=== PATIENT | female | born 1955 | race Hispanic/Latino ===

== ENCOUNTER 2017-10-20 07:33 | Inpatient (IN) | payer OTHER ==
[~2017-10-20] VITALS: Ht 152.4 cm; Wt 66.5 kg
[2017-10-20] MEDS ORDERED: SODIUM CHLORIDE 0.9% 1000ML 1,000 ML IV ONE ×2 (08:10→08:24)
[2017-10-20] MEDS ORDERED: CEFTRIAXONE SODIUM 1 GM ONE (08:10)
[2017-10-20] MEDS ORDERED: ACETAMINOPHEN EXTRA STRENGTH 500 MG TABLET ONE (08:11)
[2017-10-20] MEDS ORDERED: KETOROLAC TROMETHAMINE 15MG/ML ONE (08:11)
[2017-10-20 08:17] LABS: BASOPHILS % (AUTO) 0.1 % (0.0-5.0); EOSINOPHILS % (AUTO) 0.6 % (0.0-8.0); HEMATOCRIT 39.4 % (36-48); LYMPHOCYTES % (AUTO) 5.6 % (21.0-51.0); MEAN CORPUSCULAR HEMOGLOBIN 31.1 pg (27.0-33.0); MEAN CORPUSCULAR HGB CONC 34.4 g/dL (32.0-36.0); MEAN CORPUSCULAR VOLUME 90.4 fL (79-99); MONOCYTES % (AUTO) 4.6 % (3.0-13.0); NEUTROPHILS % (AUTO) 89.1 % (40.0-77.0); PLATELET COUNT (AUTO) 274 K/uL (130-400); RED BLOOD CELL COUNT(AUTO) 4.35 MIL/uL (4.00-5.50); RED CELL DISTRIBUTION WIDTH 13.2 % (11.0-15.5); WHITE BLOOD COUNT (AUTO) 20.5 K/uL (4.8-10.8)
[2017-10-20 08:25] LABS: CREATININE 0.9 mg/dL (0.5-1.5); POTASSIUM 3.6 mmol/L (3.5-5.1)
[2017-10-20 08:32] LABS: ALBUMIN 4.1 g/dL (3.5-5.0); BILIRUBIN,TOTAL 0.3 mg/dL (0.2-1.0); TOTAL PROTEIN, SERUM 8.6 g/dL (6.0-8.3)
[2017-10-20 09:50] LABS: APPEARANCE,URINE Clear (CLEAR); BILIRUBIN,URINE Negative (NEGATIVE); COLOR,URINE Yellow (YELLOW); GLUCOSE, URINE (UA) Negative (NEGATIVE); KETONES,URINE Negative (NEGATIVE); LEUKOCYTE ESTERASE ,URINE Small (NEGATIVE); NITRATE,URINE Negative (NEGATIVE); OCCULT BLOOD,URINE Negative (NEGATIVE); PROTEIN,URINE Negative (NEGATIVE); UROBILINOGEN,URINE 0.2 mg/dL (0.2-1.0)
[2017-10-20] MEDS ORDERED: PANTOPRAZOLE SODIUM 40 MG TABLET.DR PO ONE (09:52)
[2017-10-20] MEDS ORDERED: POTASSIUM CHLORIDE 20 MEQ ERTAB PO ONE (09:52)
[2017-10-20] MEDS ORDERED: LEVOFLOXACIN 500 MG/D5W 100 ML 100 ML ONE (09:54)
[2017-10-20] MEDS ORDERED: SODIUM CHLORIDE 0.9% 1000ML 2,000 ML IV ONE (09:54)
[2017-10-20 10:03] LABS: BACTERIA,URINE Few /HPF (None Seen); RBC,URINE 0-1 /HPF (0-1); SQUAMOUS EPITHELIAL CELL,UR 0-2 /LPF (0-2)
[2017-10-20] MEDS ORDERED: ACETAMINOPHEN 325 MG TAB PO PRN (10:30)
[2017-10-20] MEDS ORDERED: ONDANSETRON HCL 4 MG/2 ML VIAL IVP PRN (10:30)
[2017-10-20] MEDS: IPRATROPIUM/ALBUTEROL SULFATE 3 ML SOLUTION IH SCH ×2 (11:28→19:17)
[2017-10-20 12:13] VITALS: BP 125/79
[2017-10-20] MEDS: SODIUM CHLORIDE 0.9% 1000ML 1,000 ML IV SCH ×2 (12:58→23:23)
[2017-10-20] MEDS: ZOSYN 3.375GM+NS 50ML 50 ML IV SCH ×2 (12:58→20:20)
[2017-10-20] MEDS: ACETAMINOPHEN 325 MG TAB PO PRN ×2 (13:31→23:37)
[2017-10-20] MEDS: METHYLPREDNISOLONE SOD SUCC 40MG/ML 1ML IVP SCH ×2 (13:31→20:20)
[2017-10-20 15:45] VITALS: BP 123/73
[2017-10-20] MEDS ORDERED: LACTULOSE 20 GM/30 ML UDCUP PO PRN (16:30)
[2017-10-20] MEDS ORDERED: HYDRALAZINE HCL 20 MG/ML VIAL IV PRN (16:30)
[2017-10-20] MEDS: ENOXAPARIN SODIUM 40 MG/0.4 ML SYRINGE SQ SCH (16:37)
[2017-10-20 19:20] VITALS: BP 102/62
[2017-10-20 23:25] VITALS: BP 108/53
[2017-10-21] MEDS: IPRATROPIUM/ALBUTEROL SULFATE 3 ML SOLUTION IH SCH ×4 (00:54→18:53)
[2017-10-21 03:00] VITALS: BP 91/52
[2017-10-21 03:40] LABS: BASOPHILS % (AUTO) 0.1 % (0.0-5.0); HEMATOCRIT 34.3 % (36-48); LYMPHOCYTES % (AUTO) 6.2 % (21.0-51.0); MEAN CORPUSCULAR HEMOGLOBIN 30.3 pg (27.0-33.0); MEAN CORPUSCULAR HGB CONC 34.1 g/dL (32.0-36.0); MONOCYTES % (AUTO) 0.8 % (3.0-13.0); NEUTROPHILS % (AUTO) 92.9 % (40.0-77.0); PLATELET COUNT (AUTO) 285 K/uL (130-400); RED BLOOD CELL COUNT(AUTO) 3.85 MIL/uL (4.00-5.50); RED CELL DISTRIBUTION WIDTH 13.6 % (11.0-15.5); WHITE BLOOD COUNT (AUTO) 17.7 K/uL (4.8-10.8)
[2017-10-21 03:51] LABS: CREATININE 0.8 mg/dL (0.5-1.5); POTASSIUM 3.8 mmol/L (3.5-5.1)
[2017-10-21] MEDS: METHYLPREDNISOLONE SOD SUCC 40MG/ML 1ML IVP SCH ×3 (03:57→23:44)
[2017-10-21] MEDS: ZOSYN 3.375GM+NS 50ML 50 ML IV SCH ×3 (03:57→21:01)
[2017-10-21] MEDS: SODIUM CHLORIDE 0.9% 1000ML 1,000 ML IV SCH ×2 (03:58→17:37)
[2017-10-21 07:57] VITALS: BP_SYST 110; BP_SYST 81; BP_DIAS 53; BP_DIAS 64
[2017-10-21] MEDS: PANTOPRAZOLE SODIUM 40 MG TABLET.DR PO SCH (11:03)
[2017-10-21] MEDS: ENOXAPARIN SODIUM 40 MG/0.4 ML SYRINGE SQ SCH (11:04)
[2017-10-21] MEDS: LEVOFLOXACIN 500 MG/D5W 100 ML 100 ML IV SCH (11:10)
[2017-10-21 11:52] VITALS: BP 96/52
[2017-10-21 16:00] VITALS: BP 97/58
[2017-10-21 19:00] VITALS: BP 96/57
[2017-10-21] MEDS: MAG HYDROX/AL HYDROX/SIMETH ES 30 ML SUSP UDCUP PO PRN (21:04)
[2017-10-22] VITALS: BP 108/61
[2017-10-22] MEDS: IPRATROPIUM/ALBUTEROL SULFATE 3 ML SOLUTION IH SCH ×5 (00:11→23:20)
[2017-10-22] MEDS: SODIUM CHLORIDE 0.9% 1000ML 1,000 ML IV SCH ×3 (02:05→12:08)
[2017-10-22 03:00] VITALS: BP 124/67
[2017-10-22 03:38] LABS: HEMATOCRIT 32.9 % (36-48); LYMPHOCYTES % (AUTO) 5.4 % (21.0-51.0); MEAN CORPUSCULAR HEMOGLOBIN 31.5 pg (27.0-33.0); MEAN CORPUSCULAR VOLUME 89.8 fL (79-99); MONOCYTES % (AUTO) 1.6 % (3.0-13.0); PLATELET COUNT (AUTO) 295 K/uL (130-400); RED BLOOD CELL COUNT(AUTO) 3.66 MIL/uL (4.00-5.50); RED CELL DISTRIBUTION WIDTH 13.5 % (11.0-15.5); WHITE BLOOD COUNT (AUTO) 20.5 K/uL (4.8-10.8)
[2017-10-22] MEDS: ACETAMINOPHEN 325 MG TAB PO PRN (03:39)
[2017-10-22 03:46] LABS: CREATININE 0.9 mg/dL (0.5-1.5); POTASSIUM 4.3 mmol/L (3.5-5.1)
[2017-10-22] MEDS: ZOSYN 3.375GM+NS 50ML 50 ML IV SCH ×3 (04:54→20:55)
[2017-10-22] MEDS: METHYLPREDNISOLONE SOD SUCC 40MG/ML 1ML IVP SCH (06:04)
[2017-10-22 08:00] VITALS: BP 106/60
[2017-10-22 11:24] VITALS: BP 112/56
[2017-10-22] MEDS: BENZONATATE 100 MG CAPSULE PO SCH ×2 (12:04→19:08)
[2017-10-22] MEDS: ENOXAPARIN SODIUM 40 MG/0.4 ML SYRINGE SQ SCH (12:05)
[2017-10-22] MEDS: PANTOPRAZOLE SODIUM 40 MG TABLET.DR PO SCH (12:06)
[2017-10-22] MEDS: LEVOFLOXACIN 500 MG/D5W 100 ML 100 ML IV SCH (12:06)
[2017-10-22 16:00] VITALS: BP 135/79
[2017-10-22 20:00] VITALS: BP 112/72
[2017-10-22] MEDS: MAG HYDROX/AL HYDROX/SIMETH ES 30 ML SUSP UDCUP PO PRN (23:27)
[2017-10-23] VITALS: BP 133/74
[2017-10-23 03:20] LABS: BASOPHILS % (AUTO) 0.1 % (0.0-5.0); EOSINOPHILS % (AUTO) 0.1 % (0.0-8.0); HEMATOCRIT 33.2 % (36-48); LYMPHOCYTES % (AUTO) 15.6 % (21.0-51.0); MEAN CORPUSCULAR HEMOGLOBIN 31.5 pg (27.0-33.0); MEAN CORPUSCULAR HGB CONC 35.2 g/dL (32.0-36.0); MEAN CORPUSCULAR VOLUME 89.5 fL (79-99); MONOCYTES % (AUTO) 4.2 % (3.0-13.0); NUCLEATED RED BLOOD CELLS 0.1 % (0.0-0.19); PLATELET COUNT (AUTO) 304 K/uL (130-400); RED BLOOD CELL COUNT(AUTO) 3.71 MIL/uL (4.00-5.50); RED CELL DISTRIBUTION WIDTH 13.7 % (11.0-15.5); WHITE BLOOD COUNT (AUTO) 18.5 K/uL (4.8-10.8)
[2017-10-23] MEDS: BENZONATATE 100 MG CAPSULE PO SCH ×2 (03:25→13:46)
[2017-10-23] MEDS: ZOSYN 3.375GM+NS 50ML 50 ML IV SCH (03:32)
[2017-10-23 03:37] LABS: CREATININE 0.9 mg/dL (0.5-1.5)
[2017-10-23 03:44] LABS: POTASSIUM 2.9 mmol/L (3.5-5.1)
[2017-10-23 04:00] VITALS: BP 114/54
[2017-10-23] MEDS ORDERED: LIDOCAINE HCL-MPF 1% 2ML VIAL IVP PRN (04:30)
[2017-10-23] MEDS ORDERED: POTASSIUM CHLORIDE 20MEQ/100ML 100 ML IV PRN (04:30)
[2017-10-23] MEDS ORDERED: POTASSIUM CHLORIDE 20 MEQ ERTAB PO PRN (04:30)
[2017-10-23] MEDS: POTASSIUM CHLORIDE 10% ELIXIR 20 MEQ/15 ML UDCUP PO PRN ×4 (05:46→16:04)
[2017-10-23] MEDS: IPRATROPIUM/ALBUTEROL SULFATE 3 ML SOLUTION IH SCH ×3 (06:08→18:23)
[2017-10-23 08:00] VITALS: BP 106/65
[2017-10-23] MEDS ORDERED: PREDNISONE 20 MG TABLET PO SCH (09:00)
[2017-10-23] MEDS: PANTOPRAZOLE SODIUM 40 MG TABLET.DR PO SCH (09:17)
[2017-10-23] MEDS: LEVOFLOXACIN 500 MG/D5W 100 ML 100 ML IV SCH (09:18)
[2017-10-23] MEDS: ENOXAPARIN SODIUM 40 MG/0.4 ML SYRINGE SQ SCH (09:18)
[2017-10-23 11:12] VITALS: BP 99/63
[2017-10-23] MEDS ORDERED: BENZ-51 PO (14:43)
[2017-10-23] MEDS ORDERED: LEVO500T2 PO (14:43)
[2017-10-23] MEDS ORDERED: PRED5TAB PO (14:43)
[2017-10-23 15:45] VITALS: BP 114/71
== END 2017-10-23 19:36 | disposition home or self-care (01) | DRG 720 ==
LOC: EDH 07:33 → EDHIP 09:20 → 3AH 12:00 → 4CH 10-23 09:17
PROVIDERS: ADMIT Family Medicine; ATTEND Family Medicine
DX: A41.9 Sepsis, unspecified organism (principal); J18.9 Pneumonia, unspecified organism; J20.9 Acute bronchitis, unspecified; E87.6 Hypokalemia
CPT/HCPCS: 36415; 71010; 80048; 80053; 81001; 83605; 84132; 84484; 85025; 87040; 87071; 87633; 87804; 93005; 94640; 94664; 99291; J0696; J1650; J1885; J1956; J2405; J2543; J2920; J3480; J3490; J7030

== ENCOUNTER 2023-10-17 05:50 | Emergency (ER) | payer BC, OTHER ==
[~2023-10-17] VITALS: Ht 160 cm; Wt 65.8 kg
[~2023-10-17 05:50] MED LIST: BENZ-226 PO; LEVO500T2 PO; PRED5TAB PO
[2023-10-17 06:24] LABS: BASOPHILS # (AUTO) 0.05 K/uL (0.00-0.20); BASOPHILS % (AUTO) 0.7 % (0.0-5.0); EOSINOPHILS # (AUTO) 0.23 K/uL (0.00-0.70); EOSINOPHILS % (AUTO) 3.1 % (0.0-8.0); HEMATOCRIT 38.6 % (36-48); IMMATURE GRANULOCYTE ABSOLUTE 0.02 K/uL (0-1); LYMPHOCYTES # (AUTO) 1.6 K/uL (1.0-4.8); MEAN CORPUSCULAR HEMOGLOBIN 30.7 pg (27.0-33.0); MEAN CORPUSCULAR VOLUME 87.7 fL (79-99); MONOCYTES # (AUTO) 0.8 K/uL (0.1-1.0); MONOCYTES % (AUTO) 10.6 % (3.0-13.0); NEUTROPHILS # (AUTO) 4.7 K/uL (1.8-7.7); NEUTROPHILS % (AUTO) 63.3 % (40.0-77.0); PLATELET COUNT (AUTO) 271 K/uL (130-400); RED CELL DISTRIBUTION WIDTH 13.3 % (11.0-15.5); WHITE BLOOD COUNT (AUTO) 7.5 K/uL (4.8-10.8)
[2023-10-17 06:41] LABS: BILIRUBIN,TOTAL 0.5 mg/dL (0.2-1.0); CREATININE 0.8 mg/dL (0.5-1.5); POTASSIUM 3.3 mmol/L (3.5-5.1); TOTAL PROTEIN, SERUM 8.3 g/dL (6.0-8.3)
[2023-10-17] MEDS ORDERED: CEFTRIAXONE 2GM VIAL IVPB ONE (07:00)
[2023-10-17] MEDS ORDERED: 0.9%NACL 1000ML 1,000 ML IV ONE (07:00)
[2023-10-17 07:08] LABS: APPEARANCE,URINE CLEAR (CLEAR); BILIRUBIN,URINE NEGATIVE (NEGATIVE); COLOR,URINE COLORLESS (YELLOW); GLUCOSE, URINE (UA) NEGATIVE (NEGATIVE); KETONES,URINE NEGATIVE (NEGATIVE); LEUKOCYTE ESTERASE ,URINE NEGATIVE Leu/uL (NEGATIVE); NITRATE,URINE NEGATIVE (NEGATIVE); PROTEIN,URINE NEGATIVE (NEGATIVE); UROBILINOGEN,URINE 0.2 mg/dL (0.2-1.0)
[2023-10-17 07:36] LABS: ADD UA MICROSCOPIC YES
[2023-10-17 07:37] LABS: MUCUS,URINE RARE LPF (None Seen); SQUAMOUS EPITHELIAL CELL,UR RARE /HPF (0-2); WBC,URINE 0-1 /HPF (0-1)
[2023-10-17] MEDS ORDERED: ONDANSETRON 4MG INJ ONE (07:37)
[2023-10-17] MEDS ORDERED: PROCHLORPERAZINE 10MG/2ML INJ IV ONE (08:00)
[2023-10-17] MEDS ORDERED: ONDANSETRON 4MG INJ IVP ONE (08:00)
[2023-10-17] MEDS ORDERED: KETOROLAC 30MG VIAL (30MG/ML) IVP ONE (11:30)
[2023-10-17] MEDS ORDERED: KETOROLAC 30MG VIAL (30MG/ML) ONE (11:31)
[2023-10-17 14:25] VITALS: BP 119/75; PULSE 60; RESP 16; O2SAT 99
== END 2023-10-17 14:26 | disposition home or self-care (01) ==
LOC: EDH 05:50
DX: N83.291 Other ovarian cyst, right side (principal); R11.0 Nausea
CPT/HCPCS: 99285; 74176; 96365; 96375; 76856; 71045; 82550; 84484; 80053; 83690; 85025; 81001; 36415; 93005; J7030; J0696; J0780; J2405; J1885